=== PATIENT | female | born 1955 | race Two or more races ===

== ENCOUNTER 2019-11-22 03:57 | Inpatient (IN) | payer MEDICAID, OTHER ==
[~2019-11-22] VITALS: Ht 165.1 cm; Wt 67.6 kg
[2019-11-22 05:08] LABS: BASOPHILS % 0.8 % (0.0-2.0); EOSINOPHILS % 1.9 % (0.0-5.0); HEMATOCRIT. 39.1 % (36.0-48.0); HEMOGLOBIN. 13.6 g/dL (12.0-16.0); LYMPHOCYTES % 30.2 % (20.0-50.0); MEAN CORPUSCULAR HEMOGLOBIN 32.2 pg (28.0-32.0); MEAN CORPUSCULAR VOLUME 92.7 fL (81.0-99.0); MEAN PLATELET VOLUME 9.7 fl (7.4-10.4); MONOCYTES % 6.2 % (2.0-8.0); NEUTROPHILS % 60.9 % (40.0-76.0); PLATELET 161 x1000/uL (130-400); RED BLOOD CELL COUNT 4.22 mill/uL (4.2-5.4)
[2019-11-22 05:13] LABS: CHLORIDE 105 mEq/L (98-107)
[2019-11-22 05:16] LABS: PROTHROMBIN TIME 10.4 sec (9.6-11.0)
[2019-11-22 08:30] VITALS: BP 164/98
[2019-11-22] MEDS ORDERED: CLONIDINE 0.1MG TABLET PO PRN (10:15)
[2019-11-22 12:00] VITALS: BP 154/72
[2019-11-22] MEDS ORDERED: ONDANSETRON HCL 4MG/2ML INJ IV PRN (15:30)
[2019-11-22] MEDS ORDERED: POTASSIUM CHLORIDE 20MEQ TABLET SR PO NR (15:30)
[2019-11-22] MEDS ORDERED: ACETAMINOPHEN 325MG TABLET PO PRN ×2 (15:30)
[2019-11-22] MEDS ORDERED: DIPHENHYDRAMINE 50MG/ML VIAL IV PRN (15:30)
[2019-11-22 16:00] VITALS: BP 134/81
[2019-11-22] MEDS: ENOXAPARIN 40MG/0.4ML SYR SUBCUT SCH (16:10)
[2019-11-22] MEDS ORDERED: LEVO50TA PO (19:51)
[2019-11-22] MEDS ORDERED: AMLO-78 PO (19:51)
[2019-11-22] MEDS ORDERED: PRAV80TA21 PO (19:51)
[2019-11-22] MEDS ORDERED: DICL50TA9 PO (19:51)
[2019-11-22 20:00] VITALS: BP 108/79
[2019-11-22] MEDS: SODIUM CHLORIDE 0.9% INJ 3ML FLUSH IVF SCH (20:38)
[2019-11-22] MEDS ORDERED: ZOLPIDEM TARTRATE 5MG TABLET PO PRN (21:00)
[2019-11-22 22:25] VITALS: BP 134/76
[2019-11-23] VITALS: BP 149/85
[2019-11-23 04:00] VITALS: BP 142/88
[2019-11-23] MEDS: SODIUM CHLORIDE 0.9% INJ 3ML FLUSH IVF SCH ×2 (05:13→17:14)
[2019-11-23 05:45] LABS: BASOPHILS % 0.5 % (0.0-2.0); EOSINOPHILS % 1.9 % (0.0-5.0); HEMATOCRIT. 37.8 % (36.0-48.0); HEMOGLOBIN. 12.7 g/dL (12.0-16.0); LYMPHOCYTES % 30.5 % (20.0-50.0); MEAN CORPUSCULAR HEMOGLOBIN 31.4 pg (28.0-32.0); MEAN CORPUSCULAR VOLUME 93.3 fL (81.0-99.0); MEAN PLATELET VOLUME 9.4 fl (7.4-10.4); MONOCYTES % 6.9 % (2.0-8.0); NEUTROPHILS % 60.2 % (40.0-76.0); PLATELET 156 x1000/uL (130-400); RED BLOOD CELL COUNT 4.05 mill/uL (4.2-5.4); RED CELL DISTRIBUTION WIDTH 13.9 % (11.6-14.6)
[2019-11-23 07:16] LABS: CHLORIDE 104 mEq/L (98-107)
[2019-11-23 07:26] LABS: PHOSPHORUS 3.7 mg/dL (2.5-4.9)
[2019-11-23 08:00] VITALS: BP 144/71
[2019-11-23] MEDS ORDERED: POTASSIUM CHLORIDE 20MEQ TABLET SR PO SCH (09:45)
[2019-11-23 12:00] VITALS: BP 135/87
[2019-11-23 16:00] VITALS: BP 142/84
[2019-11-23] MEDS: ENOXAPARIN 40MG/0.4ML SYR SUBCUT SCH (17:14)
[2019-11-23] MEDS ORDERED: LEVOTHYROXINE SODIUM 150MCG TABLET PO NR (17:30)
[2019-11-23] MEDS ORDERED: SYN150 MT ×2 (17:53→17:54)
[2019-11-23 17:55] VITALS: BP 142/84
== END 2019-11-23 18:40 | disposition home or self-care (01) | DRG 203 ==
LOC: ER 03:57 → 7WST 05:54 → ENRESERV 07:13 → 6WST 22:26
PROVIDERS: ADMIT Internal Medicine; ATTEND Internal Medicine
DX: M94.0 Chondrocostal junction syndrome [Tietze] (principal); R10.13 Epigastric pain; E03.9 Hypothyroidism, unspecified; E78.00 Pure hypercholesterolemia, unspecified; Z20.828 Contact with and (suspected) exposure to other viral communicable diseases; I10 Essential (primary) hypertension; Z86.73 Personal history of transient ischemic attack (TIA), and cerebral infarction without residual deficits; Z98.891 History of uterine scar from previous surgery
CPT/HCPCS: 36415; 71045; 80048; 80053; 83605; 83735; 83880; 84100; 84145; 84443; 84484; 85025; 87426; 93005; 93306; 99285; J1650

== ENCOUNTER 2020-08-26 20:15 | Emergency (ER) | payer MEDICAID, MEDICARE ==
[~2020-08-26] VITALS: Ht 160 cm; Wt 73.0 kg
[~2020-08-26 20:15] MED LIST: AMLO-78 PO; DICL50TA9 PO; PRAV80TA21 PO; SYN150 MT
[2020-08-26 21:18] LABS: BASOPHILS % 0.7 % (0.0-2.0); CHLORIDE 105 mEq/L (98-107); EOSINOPHILS % 2.3 % (0.0-5.0); HEMATOCRIT. 38.1 % (36.0-48.0); HEMOGLOBIN. 13.7 g/dL (12.0-16.0); LYMPHOCYTES % 25.4 % (20.0-50.0); MEAN CORPUSCULAR VOLUME 94.5 fL (81.0-99.0); MEAN PLATELET VOLUME 8.9 fl (7.4-10.4); MONOCYTES % 6.2 % (2.0-8.0); NEUTROPHILS % 65.4 % (40.0-76.0); PLATELET 211 x1000/uL (130-400); RED BLOOD CELL COUNT 4.03 mill/uL (4.2-5.4); RED CELL DISTRIBUTION WIDTH 13.8 % (11.6-14.6)
[2020-08-26 22:15] VITALS: BP 156/83
== END 2020-08-26 22:25 | disposition home or self-care (01) ==
LOC: ER 20:15 → CANBEDREQ 22:59
DX: R07.9 Chest pain, unspecified (principal); I10 Essential (primary) hypertension; E05.90 Thyrotoxicosis, unspecified without thyrotoxic crisis or storm; Z86.73 Personal history of transient ischemic attack (TIA), and cerebral infarction without residual deficits
CPT/HCPCS: 36415; 71045; 80053; 83880; 84484; 85025; 93005; 99285

== ENCOUNTER 2021-10-25 10:01 | Emergency (ER) | payer MEDICARE, OTHER ==
[~2021-10-25] VITALS: Ht 160 cm; Wt 82.0 kg
[~2021-10-25 10:01] MED LIST changes: +AMLO-139 PO; -AMLO-78 PO
[2021-10-25] MEDS ORDERED: IBUPROFEN 600MG TABLET PO STA (10:52)
[2021-10-25] MEDS ORDERED: NAPR-681 PO (11:57)
[2021-10-25] MEDS ORDERED: DICL100G31 TP (11:57)
[2021-10-25 12:40] VITALS: BP 153/86
== END 2021-10-25 12:40 | disposition home or self-care (01) ==
LOC: ER 10:01
DX: M17.11 Unilateral primary osteoarthritis, right knee (principal); I10 Essential (primary) hypertension; Z86.39 Personal history of other endocrine, nutritional and metabolic disease; Z86.73 Personal history of transient ischemic attack (TIA), and cerebral infarction without residual deficits
CPT/HCPCS: 73562; 99283

== ENCOUNTER 2022-01-15 18:28 | Emergency (ER) | payer OTHER ==
[~2022-01-15] VITALS: Ht 152.4 cm; Wt 77.0 kg
[~2022-01-15 18:28] MED LIST changes: +DICL100G31 TP; +NAPR-681 PO
[2022-01-15 18:42] VITALS: BP 157/90
[2022-01-15] MEDS ORDERED: ONDANSETRON 4MG ODT PO STA (21:34)
[2022-01-15] MEDS ORDERED: VISCOUS LIDOCAINE 2% 15 ML UDC MM STA (22:10)
[2022-01-15] MEDS ORDERED: MORPHINE SULFATE 10 MG/ML CPJ IM ONE (22:15)
[2022-01-15] MEDS ORDERED: ACETAMINOPHEN 325MG TABLET PO ONE (22:15)
[2022-01-15] MEDS ORDERED: MAGNESIUM/ALUMINUM HYDROXIDE/SIMETHICONE 30ML UDC PO ONE (22:15)
[2022-01-15 22:42] LABS: CLARITY URINE CLOUDY (CLEAR); COLOR URINE YELLOW (YELLOW); KETONES URINE TRACE (NEGATIVE); LEUKOCYTE ESTERASE URINE TRACE (NEGATIVE); NITRITE URINE NEGATIVE (NEGATIVE); OCCULT BLOOD URINE 2+ (NEGATIVE); PH URINE 7.5 (4.5-8.0); PROTEIN URINE 1+ (NEGATIVE); SPECIFIC GRAVITY URINE 1.015 (1.005-1.030); UROBILINOGEN URINE 0.2 E.U./dL (0.2-1.0)
[2022-01-15 22:46] LABS: CHLORIDE 105 mEq/L (98-107)
[2022-01-15 22:47] LABS: BASOPHILS % 0.3 % (0.0-2.0); EOSINOPHILS % 0.2 % (0.0-5.0); HEMATOCRIT. 42.8 % (36.0-48.0); HEMOGLOBIN. 14.6 g/dL (12.0-16.0); LYMPHOCYTES % 9.1 % (20.0-50.0); MEAN CORPUSCULAR HEMOGLOBIN 30.7 pg (28.0-32.0); MEAN CORPUSCULAR VOLUME 90.4 fL (81.0-99.0); MEAN PLATELET VOLUME 9.2 fl (7.4-10.4); MONOCYTES % 3.7 % (2.0-8.0); NEUTROPHILS % 86.7 % (40.0-76.0); PLATELET 213 x1000/uL (130-400); RED BLOOD CELL COUNT 4.74 mill/uL (4.2-5.4); RED CELL DISTRIBUTION WIDTH 13.2 % (11.6-14.6)
[2022-01-15] MEDS ORDERED: TAMSULOSIN HCL 0.4MG SR CAPSULE PO ONE (23:00)
[2022-01-15] MEDS ORDERED: KETOROLAC 30MG/ML VIAL IV ONE (23:00)
[2022-01-15] MEDS ORDERED: FAMOTIDINE 20MG TABLET PO SCH (23:17)
[2022-01-16] MEDS ORDERED: SODIUM CHLORIDE 0.9% 1,000 ML IV ONE (00:45)
[2022-01-16] MEDS ORDERED: CEFTRIAXONE 1 G PREMIX 50 ML IV ONE (00:45)
[2022-01-16] MEDS ORDERED: IBUP-2028 MT (00:49)
[2022-01-16] MEDS ORDERED: CEFP200T13 MT (00:49)
[2022-01-16] MEDS ORDERED: TOPUD PO (00:49)
[2022-01-16] MEDS ORDERED: TAMS-11 MT (00:49)
[2022-01-16] MEDS ORDERED: FAMOTIDINE 20MG TABLET PO SCH (21:00)
== END 2022-01-16 01:59 | disposition home or self-care (01) ==
LOC: ER 18:28
DX: N13.2 Hydronephrosis with renal and ureteral calculous obstruction (principal); N39.0 Urinary tract infection, site not specified; I10 Essential (primary) hypertension; E03.9 Hypothyroidism, unspecified; Z86.73 Personal history of transient ischemic attack (TIA), and cerebral infarction without residual deficits
CPT/HCPCS: 36415; 74176; 80053; 81003; 83690; 85025; 93005; 96365; 96372; 96375; 99285; J0696; J1885; J2270; J7030; Q0162

== ENCOUNTER 2024-01-03 08:43 | Emergency (ER) | payer OTHER ==
[~2024-01-03] VITALS: Ht 157.5 cm; Wt 72.6 kg
[~2024-01-03 08:43] MED LIST changes: +CEFP200T13 MT; -DICL100G31 TP; +DICL100G58 TP; +IBUP-2028 MT; +TAMS-11 MT; +TOPUD PO
[2024-01-03 08:56] VITALS: O2SAT 98
[2024-01-03] MEDS: AMLODIPINE 5MG TABLET PO ONE (09:22)
[2024-01-03] MEDS: LISINOPRIL 40MG TABLET PO ONE (09:22)
[2024-01-03 09:29] LABS: BASOPHILS % 0.5 % (0.0-2.0); HEMATOCRIT. 40.9 % (36.0-48.0); HEMOGLOBIN. 13.4 g/dL (12.0-16.0); LYMPHOCYTES % 17.2 % (20.0-50.0); MEAN CORPUSCULAR HEMOGLOBIN 30.3 pg (28.0-32.0); MEAN CORPUSCULAR HGB CONC 32.7 g/dL (31.0-37.0); MEAN CORPUSCULAR VOLUME 92.6 fL (81.0-99.0); MEAN PLATELET VOLUME 8.1 fl (7.4-10.4); MONOCYTES % 8.2 % (2.0-8.0); NEUTROPHILS % 72.1 % (40.0-76.0); PLATELET 200 x1000/uL (130-400); RED BLOOD CELL COUNT 4.41 mill/uL (4.2-5.4); RED CELL DISTRIBUTION WIDTH 13.1 % (11.6-14.6); WHITE BLOOD COUNT 6.4 x1000/uL (4.5-11.0)
[2024-01-03 09:34] LABS: CHLORIDE 107 mEq/L (98-107); POTASSIUM 3.9 mEq/L (3.5-5.1); SODIUM 138 mEq/L (136-145)
[2024-01-03 09:35] LABS: CARBON DIOXIDE 27 mEq/L (21-32)
[2024-01-03 09:40] LABS: CREATININE 0.8 mg/dL (0.6-1.0)
[2024-01-03 09:41] LABS: GLUCOSE 102 mg/dL (70-105); UREA NITROGEN BLOOD 10 mg/dL (9-23)
[2024-01-03 09:42] LABS: ALANINE AMINOTRANSFERASE 19 IU/L (10-49); ALBUMIN 4.3 g/dL (3.2-4.8); ASPARTATE AMINOTRANSFERASE 23 IU/L (<34)
[2024-01-03 09:43] LABS: BILIRUBIN DIRECT 0.2 mg/dL (<=3.0); BILIRUBIN TOTAL 0.8 mg/dL (0.1-1.0); PROTEIN TOTAL 7.9 g/dL (6.0-8.3)
[2024-01-03 09:49] LABS: TROPONIN I HIGH SENSITIVITY < 4 ng/L (3.0-34)
[2024-01-03] MEDS ORDERED: AMOX-494 MT (10:00)
[2024-01-03 10:10] VITALS: BP 160/99; PULSE 71; RESP 17; TEMP 37.16964; O2SAT 98
== END 2024-01-03 10:15 | disposition home or self-care (01) ==
LOC: ER 08:43
DX: J18.9 Pneumonia, unspecified organism (principal); I10 Essential (primary) hypertension; Z86.73 Personal history of transient ischemic attack (TIA), and cerebral infarction without residual deficits; Z79.899 Other long term (current) drug therapy; E05.90 Thyrotoxicosis, unspecified without thyrotoxic crisis or storm
CPT/HCPCS: 36415; 71045; 80048; 80076; 84484; 85025; 93005; 99285